=== PATIENT | male | born 1960 | race Caucasian/White ===

== ENCOUNTER 2017-01-21 13:23 | Emergency (ER) | payer MEDICAID ==
[2017-01-21] MEDS: ONDANSETRON HCL IV 4 MG/2 ML VIAL IVP ONE (13:36)
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
[2017-01-21] MEDS: MORPHINE SULFATE 5 MG/ML PFS IVP ONE ×2 (13:37→13:46)
[2017-01-21] MEDS: SILVER SULFADIAZINE 25 GM CREAM TOP ONE ×2 (13:57→14:07)
[2017-01-21] MEDS: KETOROLAC 30 MG/ML VIAL IVP ONE (14:07)
== END 2017-01-21 15:14 | disposition home or self-care (01) ==
LOC: ER 13:23
DX: T22.211A Burn of second degree of right forearm, initial encounter (principal); T22.231A Burn of second degree of right upper arm, initial encounter; X08.8XXA Exposure to other specified smoke, fire and flames, initial encounter
CPT/HCPCS: 16020; 99284 ×2; 96374; 96375; J1885; J2405; J2270

== ENCOUNTER 2017-01-22 14:56 | Emergency (ER) | payer MEDICAID ==
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
[2017-01-22] MEDS: SILVER SULFADIAZINE 25 GM CREAM TOP ONE (15:22)
== END 2017-01-22 15:36 | disposition home or self-care (01) ==
LOC: ER 14:56
DX: T22.111A Burn of first degree of right forearm, initial encounter (principal); X08.8XXA Exposure to other specified smoke, fire and flames, initial encounter
CPT/HCPCS: 99282